=== PATIENT | female | born 1980 | race Two or more races ===

== ENCOUNTER 2016-05-19 05:39 | Inpatient (IN) | payer BC ==
[~2016-05-19 05:39] MED LIST: HUMIRA40 MG/0.3 SQ; MULTIVITAMINS1 EAC6 PO; OMEGA 3 FISH1 CAP.EC PO; PRENATAL1 EACH PO
[2016-05-19 06:29] LABS: BASO % 1.2 % (0-2); BASO ABSOLUTE COUNT 0.1 tho/cmm (0.0-0.2); EOS % 8.7 % (0-7); EOSINOPHIL ABSOLUTE COUNT 0.4 tho/cmm (0.0-0.7); HCT-HEMATOCRIT 33.8 % (34.0-49.0); HGB-HEMOGLOBIN 10.7 gm/dl (12.0-15.5); LYMPH % 29.3 % (20-45); LYMPH ABSOLUTE COUNT 1.2 tho/cmm (0.8-4.5); MCH (MEAN CORPUSCULAR HGB) 24.8 pg (28.0-32.0); MCHC MEAN CORPUSCULAR HGB CONC 31.7 % (32.0-36.0); MCV (MEAN CELL VOLUME) 78.2 fl (82.0-96.0); MEAN PLATELET VOLUME 9.9 cmc (9.4-12.4); MONO % 10.4 % (0-12); MONOCYTE ABSOLUTE COUNT 0.4 tho/cmm (0.0-1.2); NEUTROPHILS % 50.4 % (40-80); PLATELET COUNT 481 tho/cmm (150-450); RED BLOOD COUNT 4.32 mil/cmm (4.00-5.20); RED CELL DISTRIBUTION WIDTH 14.3 % (12.4-16.4)
[2016-05-19 06:43] LABS: ANION GAP 11 mmol/L (0-20); BLOOD UREA NITROGEN 6 mg/dl (6-24); CALCIUM 8.7 mg/dl (8.5-10.5); CARBON DIOXIDE-VENOUS 26 mmol/L (22-32); CHLORIDE 102 mmol/l (96-110); CREATININE 0.62 mg/dl (0.50-1.10); GLUCOSE 102 mg/dL (70-110); POTASSIUM 3.4 mmol/L (3.7-5.1); SODIUM 136 mmol/L (135-145); eGFR VALUE FOR BLACK >90 mL/Min
--- NOTE | 2016-05-19 21:15 | NUR ---
VIRTUAL CARE NOTE: ASSESSMENT DEFERRED. PT. SLEEPING.
[2016-05-20 06:20] LABS: BASO % 0.1 % (0-2); EOS % 0.6 % (0-7); EOSINOPHIL ABSOLUTE COUNT 0.1 tho/cmm (0.0-0.7); IMMATURE GRANULOCYTES ABSOLUTE 0.02 tho/cmm (0-0.03); IMMATURE GRANULOCYTES PERCENT 0.2 % (0-0.3); LYMPH ABSOLUTE COUNT 1.1 tho/cmm (0.8-4.5); MCV (MEAN CELL VOLUME) 78.8 fl (82.0-96.0); MEAN PLATELET VOLUME 9.5 cmc (9.4-12.4); MONO % 8.2 % (0-12); MONOCYTE ABSOLUTE COUNT 0.7 tho/cmm (0.0-1.2); NEUTROPHIL ABSOLUTE COUNT 6.3 tho/cmm (1.6-8.0); NEUTROPHIL-AUTOMATED 6.3 tho/cmm (1.6-8.0); NEUTROPHILS % 76.9 % (40-80); PLATELET COUNT 299 tho/cmm (150-450); RED BLOOD COUNT 3.06 mil/cmm (4.00-5.20); RED CELL DISTRIBUTION WIDTH 14.6 % (12.4-16.4)
[2016-05-20 06:28] LABS: ANION GAP 11 mmol/L (0-20); BLOOD UREA NITROGEN 3 mg/dl (6-24); CALCIUM 7.6 mg/dl (8.5-10.5); CARBON DIOXIDE-VENOUS 27 mmol/L (22-32); CHLORIDE 107 mmol/l (96-110); CREATININE 0.39 mg/dl (0.50-1.10); GLUCOSE 83 mg/dL (70-110); POTASSIUM 3.5 mmol/L (3.7-5.1); SODIUM 141 mmol/L (135-145); eGFR VALUE FOR BLACK >90 mL/Min
[2016-05-20 06:38] LABS: HCT-HEMATOCRIT 24.1 % (34.0-49.0); HGB-HEMOGLOBIN 7.6 gm/dl (12.0-15.5); MCH (MEAN CORPUSCULAR HGB) 24.8 pg (28.0-32.0); MCHC MEAN CORPUSCULAR HGB CONC 31.5 % (32.0-36.0); WHITE BLOOD COUNT 8.2 tho/cmm (4.0-10.0)
--- NOTE | 2016-05-20 20:40 | NUR ---
VIRTUAL CARE NOTE: ASSESSMENT DEFERRED. PT SLEEPING. WILL CONTINUE WITH CHART REVIEW.
--- NOTE | 2016-05-22 13:04 | NUR ---
DONELL ROUNDING NOTE-VISITED WITH PATIENT AND SHE STATES HER PAIN IS STAYING CONTROLLED. SHE HAS AN EPIDURAL AND IT HAS BEEN DECREASED TO 4CC/HR AND SHE HAD FULL LIQUIDS FOR LUNCH-STATES SHE TOLERATED FINE. ENC HER TO AMBULATE IN THE HALLS AT LEAST 4X/DAY AND TO USE HER INCENTIVE SPIROMETER. NO OTHER QUESTIONS OR CONCERNS AT THIS TIME. CHART REVIEWED
--- NOTE | 2016-05-22 21:10 | NUR ---
VIRTUAL CARE NOTE: ASSESSMENT DEFERRED. PT. SLEEPING.
[2016-05-23] MEDS ORDERED: NORCO 5-325 TA1 EACH PO (11:22)
== END 2016-05-23 17:10 | DRG 330 ==
LOC: SHSC 05:39 → ORW 07:30 → PACU 09:27 → 5WD 11:45
PROVIDERS: Anesthesiology; ADMIT Colon & Rectal Surgery
PROC: 0DTF0ZZ Resection of Right Large Intestine, Open Approach (ICD-10-PCS; principal; 2016-05-19)
DX: K50.112 Crohn's disease of large intestine with intestinal obstruction (principal)
CPT/HCPCS: J0131; J0690; J1170; J1885; J2250; J2765; J3480; J7030